=== PATIENT | female | born 1940 | race Caucasian/White ===

== ENCOUNTER 2024-08-28 20:04 | Emergency (ER) | payer MEDICAID, MEDICARE, OTHER ==
[~2024-08-28] VITALS: Ht 162.6 cm; Wt 54.5 kg
[~2024-08-28 20:04] MED LIST: FOLI-119; FURO1TAB31; METH2.5T; METO25TA36; RABE20TA19; [UNRECOGNIZED DRUG - CODE]
--- NOTE | 2024-08-28 20:22 | ED.PDOC ---
History of Present Illness HPI Comments 84 y/o F, with a Hx of rheumatoid arthritis and HTN, is BIBA for c/o foreign body lodgement in throat with secondary difficulty swallowing, today. Per EMS report, patient endorses on suspecting a piece of her dinner getting "stuck" in her "throat," while eating "steak and broccoli," earlier, this evening. patient comments on having no difficulty breathing, cough, or other associated symptoms or modifiers at this time. Time Seen by MD: 20:00 Primary Care Provider: ERIC Reviewed Notes: Nurses Notes, Roulette Dealer Notes, Medications, Allergies Allergies: Uncoded Allergies: ANECTIN (Allergy, Mild, 11/12/11) PENICILLIN (Allergy, Mild, 11/12/11) Home Meds Reported Medications Rabeprazole Sodium (Aciphex) 20 Mg Tab, DAILY 11/12/11 Methotrexate (Methotrexate) 2.5 Mg Tab, DAILY 11/12/11 Furosemide (Lasix) 40 Mg Tab, DAILY 11/12/11 Metoprolol Succinate (Toprol Xl) 25 Mg Tab, BID 11/12/11 Folic Acid (Folic Acid) 1 Mg Tab 11/12/11 Thyroid (Thyroid) 2 Gr Tab, DAILY 11/12/11 Information Source: Patient, Emergency Med Personnel Mode of Arrival: EMS Severity: Moderate Timing: Hours Duration: Since onset Prehospital treatment: None Past Medical History PAST MEDICAL HISTORY: Arthritis (rheumatoid arthritis), HTN Surgical History: Appendectomy, Cholecystectomy, , Thyroidectomy Surgical History (Other): intubation/extubation REAL ESTATE AGENCY LICENSEE History: No Pertinent REAL ESTATE AGENCY LICENSEE History Family History Family History: Unknown Social History Smoker: Non-Smoker Alcohol: Denies ETOH Use Drugs: Denies Drug Use Lives In: Home EENTM: reports: others (foreign body, secondary difficulty swallowing) All Other Systems: Reviewed and Negative (negative unless otherwise stated above or in HPI) Physical Exam General Appearance: Mild Distress, Normal HEENT: Normal ENT Inspection, Pharynx Normal, TMs Normal Neck: Full Range of Motion, Non-Tender, Normal, Normal Inspection Respiratory: Chest Non-Tender, Lungs Clear, No Accessory Muscle Use, No Respiratory Distress, Normal Breath Sounds Cardiovascular: No Edema, No JVD, No Murmur, No Gallop, Normal Peripheral Pulses, Regular Rate/Rhythm Breast Exam: Deferred Gastrointestinal: No Organomegaly, Non Tender, No Pulsatile Mass, Normal Bowel Sounds, Soft Genitalia: Deferred Pelvic: Deferred Rectal: Deferred Extremities: No calf tenderness, Normal capillary refill, Normal inspection, Normal range of motion, Non-tender, No pedal edema Musculoskeletal : Apperance: Normal Neurologic: Alert, 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 Was a procedure done?: No Differential Dx Considerations may include: foreign body, indigestion, gastritis, gastroenteritis, PUD, hernia X-Ray, Labs, Meds, VS Vital Signs Date Time Temp Pulse Resp B/P (MAP) Pulse Ox O2 Delivery O2 Flow Rate FiO2 08/28/24 20:05 97.9 77 18 206/90 (128) 96 Current Medications Medications (Trade) Dose Ordered Sig/Ana Paula Route Start Time Stop Time Status Last Admin Glucagon (Glucagen) 1 mg ONCE ONCE IM 08/28/24 20:15 08/28/24 20:16 DC 08/28/24 20:42 [place] [id number] Ph: [phone] DIAGNOSTIC IMAGING Diagnostic Imaging Report : [id number] Signed PATIENT: LEVI FABIAN ACCT: [id number] UNIT: [id number] : 1940 LOC: ER ROOM / BED: / AGE / SEX: 84 / F ADM STATUS: REG ER SERVICE 12 ORDERING PHYSICIAN: DARLYN JOYA MD PROCEDURE(s): NKICT - NECK WITHOUT CONTRAST REASON: foreign body ORDER NUMBER(s): [id number], ACCESSION NUMBER(s): [id number] EXAM: CT NECK WITHOUT CONTRAST INDICATION: foreign body Exam Date: 08/28/2024 09:49 PM COMPARISON: None TECHNIQUE: CT of the neck with intravenous contrast. RADIATION DOSE: CTDIvol: 8.64 mGy, DLP: 235.37 mGy*cm FINDINGS: There is no evidence of cervical mass lesion, pathologically enlarged lymph node s or fluid collection. The fat planes of the neck appear intact. The airway and larynx are unremarkable. The parotid, submandibular and thyroid glands are unremarkable. The left thyroid lobe is not visualized. The visualized lung apices are clear. The limited visualized portions of the brain are unremarkable. Moderate diffuse degenerative changes of the osseous structures. IMPRESSION: No evidence of cervical mass lesion, pathologically enlarged lymph nodes or fluid collection. No radiopaque foreign objects. END IMPRESSION: ATED BY: YANICK ABEL DO DICTATED DATE/TIME: 08/28/242211 SIGNED BY: YANICK ABEL DO SIGNED DATE/TIME: 08/28/242211 CC: The patient has no signs of choking no difficulty breathing. Patient was discharged with foreign body of the esophagus has passed according to CT. Time of 1ST Reevaluation: 20:15 Reevaluation 1ST: Unchanged Patient Education/Counseling: Diagnosis, Treatment Family Education/Counseling: No Family Present Departure 1 Departure Time of Disposition: 23:11 Impression: Primary Impression: Esophageal foreign body Disposition: HOME / SELF CARE / HOMELESS Condition: Stable Additional Instructions: Reassessed patient, vital signs stable. Denies any new symptoms. Patient is able to tolerate PO and ambulate/be mobile at their baseline without concern. Risks and benefits of all medications given or prescribed, if any, discussed. All lab work, imaging and diagnostic studies were reviewed by me. The patient was counseled extensively on my clinical impression, diagnosis, expected course of the disease, and plan, including their follow-up care. Will discharge patient. Patient instructed to follow up with Primary Care Physician within 24-48 hours. Strict return precautions given for further exacerbation of symptoms or for new symptoms. The patient was given the opportunity to ask questions and all questions were answered by myself and the nursing/tech staff. Patient is in agre ement with the care plan. The patient verbally expressed understanding of the discharge instructions, including the reasons to return to the Emergency Department. Discharged With: Self Critical Care Note Critical Care Time?: No Stability Stability form required: No Heart Score Heart Score: Heart Score Response (Comments) Value History N/A 0 EKG N/A 0 Age N/A 0 Risk Factors N/A 0 Troponin N/A 0 Total 0 I personally scribed for DARLYN JOYA MD ([email or web address]) on 08/28/24 at 20:22. Electronically submitted by Remigio Smith ([email or web address]). DARLYN JOYA MD Aug 28, 2024 20:22
[2024-08-28] MEDS: GLUCAGON EMERG KIT 1mg/1ml IM ONE (20:42)
--- NOTE | 2024-08-28 22:15 | DVH ---
EXAM: CT NECK WITHOUT CONTRAST INDICATION: foreign body Exam Date: 08/28/2024 09:49 PM COMPARISON: None TECHNIQUE: CT of the neck with intravenous contrast. RADIATION DOSE: CTDIvol: 8.64 mGy, DLP: 235.37 mGy*cm FINDINGS: There is no evidence of cervical mass lesion, pathologically enlarged lymph nodes or fluid collection . The fat planes of the neck appear intact. The airway and larynx are unremarkable. The parotid, submandibular and thyroid glands are unremarkable. The left thyroid lobe is not visualized. The v isualized lung apices are clear. The limited visualized portions of the brain are unremarkable. Mod erate diffuse degenerative changes of the osseous structures. IMPRESSION: No evidence of cervical mass lesion, pathologically enlarged lymph nodes or fluid collection. No radiopaque foreign objects. END IMPRESSION:
[2024-08-29 00:17] VITALS: BP 155/69; PULSE 71; RESP 19; TEMP 98.7; O2SAT 97
== END 2024-08-29 00:54 | disposition home or self-care (01) ==
LOC: ER 20:04 → EDBD 20:04 → ER 08-29 00:45
DX: T18.108A Unspecified foreign body in esophagus causing other injury, initial encounter (principal); I10 Essential (primary) hypertension; M06.9 Rheumatoid arthritis, unspecified; Z90.49 Acquired absence of other specified parts of digestive tract; Z90.89 Acquired absence of other organs; Z98.890 Other specified postprocedural states; Z79.631 Long term (current) use of antimetabolite agent; Z79.899 Other long term (current) drug therapy; W44.9XXA Unspecified foreign body entering into or through a natural orifice, initial encounter; Y93.89 Activity, other specified; Y92.89 Other specified places as the place of occurrence of the external cause; Y99.8 Other external cause status
CPT/HCPCS: 70490; 96372; 99285; J1610